=== PATIENT | male | born 1995 | race Caucasian/White ===

== ENCOUNTER 2023-02-20 17:51 | Emergency (ER) | payer MEDICAID, SELFPAY ==
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
[2023-02-20 17:56] VITALS: BP 117/88; PULSE 124; RESP 17; TEMP 36.8; O2SAT 96; BMI 25.9
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
--- NOTE | 2023-02-20 18:32 | ECG_ITS ---
[facility] Test Date: 2023-02-20 Pat Name: Nils Perry Department: Room: Gender: Male Pulmonary Physician: : 1995 Requested By: Bean Leonard Order Number: [id number] Rita MD: Mathew Crespo M.D. Measurements Intervals [place] Rate: 104 P: 53 NE: 148 QRS: 62 QRSD: 93 T: 49 QT: 334 QTc: 441 Interpretive Statements SINUS TACHYCARDIA LEFT ATRIAL ENLARGEMENT [-0.15mV P-WAVE IN V1/V2] No previous ECG available for comparison Electronically Signed On 02-21-2023 10:20:08 CDT by Mathew Crespo M.D. [id number]
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
[2023-02-20 19:26] LABS: Basophils # 0.1 10^3/uL (0.0-0.1); Basophils % 0.6 %; Eosinophils # 0.3 10^3/uL (0.0-0.8); Eosinophils % 3.3 %; Hematocrit 45.9 % (42.0-52.0); Hemoglobin 15.4 g/dL (11.7-16.6); Lymphocytes # 2.8 10^3/uL (0.8-4.8); Lymphocytes % 27.7 %; Mean Corpuscular HGB Conc 33.6 g/dL (30.0-36.0); Mean Corpuscular Hemoglobin 29.8 pg (28.0-34.0); Mean Platelet Volume 8.8 fL (7.4-10.4); Monocytes # 0.8 10^3/uL (0.2-0.9); Monocytes % 7.5 %; Neutrophils # 6.07 10^3/uL (1.8-7.7); Neutrophils % 60.4 %; Nucleated Red Blood Cells % 0 %; Platelet Count 284 10^3/cmm (130-400); Red Blood Count 5.16 10^6/uL (4.1-5.3)
[2023-02-20 19:49] LABS: Alanine Aminotransferase 29 U/L (0-41); Albumin Level 4.5 g/dL (3.5-5.2); Alcohol Level 166 mg/dL (0-10); Alkaline Phosphatase 74 U/L (40-130); Anion Gap 17.8 (5-19); Aspartate Amino Transferase 22 U/L (0-40); Blood Urea Nitrogen 11 mg/dL (6-20); Calcium 8.1 mg/dL (8.5-10.5); Carbon Dioxide 22 mmol/L (22-29); Chloride 109 mmol/L (98-107); Globulin 2.2 g/dL (1.3-4.6); Glomerular Filtration Rate 102.8 mL/min (90-130); Glucose 93 mg/dL (65-115); Osmolality Calculated 299 mOsm/kg (285-295); Potassium 3.8 mmol/L (3.5-5.1); Sodium 145 mmol/L (136-145); Total Bilirubin 0.3 mg/dL (0.15-1.2); Total Protein 6.7 g/dL (6.6-8.7)
[2023-02-20 19:52] LABS: Acetaminophen < 5.0 ug/mL (10-30); Salicylate < 0.3 mg/dL (3-10)
[2023-02-20 20:06] LABS: Urine Appearance Clear (CLEAR); Urine Color Yellow (Yellow); pH Urine 7 (5-7)
[2023-02-20 20:07] LABS: Add Urine Microscopic? YES; Bilirubin Urine Neg (Negative); Blood Urine Neg (Negative); Glucose Urine UA Norm (Normal); Ketones Urine Negative (Negative); Leukocyte Esterase Urine Negative (Negative); Nitrate Urine Negative (Negative); Protein Urine Trace (Negative); Urobilinogen Urine Norm (Negative)
[2023-02-20 20:10] LABS: Amorphous Sediment Urine 1+ /hpf; Bacteria Urine 1+ /hpf; RBC Urine 0-4 /hpf (0-2); Squamous Epithelial Cell Urine 0-4 /hpf (0-5); WBC Urine 0-4 /hpf (0-5)
[2023-02-20 20:15] LABS: Amphetamines Screen Urine Negative (Negative); Barbiturates Screen Urine Negative (Negative); Benzodiazepines Screen Urine Positive (Negative); Cocaine Screen Urine Negative (Negative); Opiate Screen Urine Negative (Negative); PCP Screen Urine Negative (Negative); THC Screen Urine Negative (Negative)
[2023-02-20 21:41] VITALS: PULSE 80; RESP 18; O2SAT 95
--- NOTE | 2023-03-04 10:28 | DCPLANNER ---
TCM called patient due to no primary care physician - no answer at this time.
== END 2023-02-20 21:35 | disposition home or self-care (01) ==
PROVIDERS: Emergency Provider Emergency Medicine
DX: S00.83XA Contusion of other part of head, initial encounter (principal); F10.129 Alcohol abuse with intoxication, unspecified; Y90.6 Blood alcohol level of 120-199 mg/100 ml; F17.210 Nicotine dependence, cigarettes, uncomplicated; Y04.8XXA Assault by other bodily force, initial encounter
CPT/HCPCS: 36415; 70450; 71045; 80053; 80306; 80307; 81001; 85025; 93005; 99285

== ENCOUNTER → 2024-01-16 11:44 | Outpatient (BNVA) | payer MEDICAID, SELFPAY | PROVIDERS: Visit Provider Emergency Medicine | DX: J02.9 Acute pharyngitis, unspecified (principal) | CPT/HCPCS: 87071; 87880 ==

== ENCOUNTER 2025-04-03 18:06 | Emergency (ER) | payer OTHER, SELFPAY ==
--- NOTE | 2025-04-03 18:22 | ECG_ITS ---
[facility] Test Date: 2025-04-03 Pat Name: Nils Perry Department: Room: Gender: Male Licensed Embalmer: : 1995 Requested By: Praveena Rincon Order Number: [id number] Salinas MD: Kym Rivera M.D. Measurements Intervals [place] Rate: 71 P: 55 [place]: 147 QRS: 59 QRSD: 96 T: 59 QT: 378 QTc: 413 Interpretive Statements SINUS RHYTHM Compared to ECG 02/20/2023 18:59:31 Sinus tachycardia no longer present Atrial abnormality no longer present ST changes inferior leads, may suggest early repolarization Electronically Signed On 04-05-2025 06:11:08 CDT by Kym Rivera M.D. [email or web address] [id number]
[2025-04-03 18:23] VITALS: BP 137/97; PULSE 85; RESP 16; TEMP 36.6; O2SAT 100
[2025-04-03 19:48] LABS: Basophils # 0.1 10^3/uL (0.0-0.1); Basophils % 0.9 %; Eosinophils # 0.5 10^3/uL (0.0-0.8); Hematocrit 45.3 % (37-53); Lymphocytes % 31.7 %; Mean Corpuscular HGB Conc 35.1 g/dL (30-55); Mean Corpuscular Hemoglobin 30.5 pg (27-33); Mean Corpuscular Volume 86.9 fl (82-101); Mean Platelet Volume 9.1 fL (7.4-10.4); Monocytes # 0.5 10^3/uL (0.2-0.9); Monocytes % 8.2 %; Neutrophils # 3.23 10^3/uL (1.8-7.7); Neutrophils % 50.9 %; Nucleated Red Blood Cells % 0 %; Platelet Count 286 10^3/cmm (157-399); Red Blood Count 5.21 10^6/uL (3.85-5.65); White Blood Count 6.35 10^3/uL (3.29-11.43)
[2025-04-03 20:05] LABS: Alanine Aminotransferase 16 U/L (0-41); Albumin Level 4.4 g/dL (3.5-5.2); Alkaline Phosphatase 88 U/L (40-130); Anion Gap 14.4 (5-19); Aspartate Amino Transferase 15 U/L (0-40); Blood Urea Nitrogen 14 mg/dL (6-20); Calcium 8.8 mg/dL (8.5-10.5); Carbon Dioxide 26 mmol/L (22-29); Chloride 102 mmol/L (98-107); Creatinine Clr Calc Pharmacy 138.2406; Globulin 2.8 g/dL (1.3-4.6); Glucose 101 mg/dL (65-115); Osmolality Calculated 287 mOsm/kg (285-295); Potassium 4.4 mmol/L (3.5-5.1); Sodium 138 mmol/L (136-145); Total Bilirubin 0.8 mg/dL (0.15-1.2); Total Protein 7.2 g/dL (6.6-8.7)
[2025-04-03 21:06] VITALS: BP 145/100; PULSE 97; RESP 16; O2SAT 99
--- NOTE | 2025-04-03 21:11 | CTR_ITS ---
PROCEDURE INFORMATION: Exam: CT Head Without Contrast Exam date and time: 04/03/2025 9:24 PM Age: 29 years old Clinical indication: Weakness, extremity; Bilateral; Additional info: Syncope TECHNIQUE: Imaging protocol: Computed tomography of the head without contrast. Radiation optimization: All CT scans at this facility use at least one of these dose optimization techniques: automated exposure control; mA and/or kV adjustment per patient size (includes targeted exams where dose is matched to clinical indication); or iterative reconstruction. COMPARISON: CT head wo con* [id number] 03/22/2023 18:46 RADIATION DOSE METRICS: Total DLP (mGy-cm): 1054.1 FINDINGS: Brain: Parenchymal structures of the brain demonstrate relatively normal anatomy and attenuation. The midline is intact.Beam hardening artifact obscures resolution through the posterior fossa structures. No hemorrhage. Unremarkable white matter. No mass effect. Cerebral ventricles: No ventriculomegaly. Paranasal sinuses: Partial opacification of the right maxillary sinus without discrete air-fluid level. Also observed are areas of mucosal thickening and partial opacification of the ethmoid sinus air cells and left frontal sinus. Mastoid air cells: Visualized mastoid air cells are well aerated. Bones: Unremarkable. No acute fracture. Soft tissues: Unremarkable. CT/CT head wo con* [id number] IMPRESSION: 1. No acute intracranial head CT findings identified. 2. Nonspecific mucosal thickening of the sinuses, as described
--- NOTE | 2025-04-03 21:12 | ED_ITS ---
HPI - Syncope 2 General: Chief Complaint: Syncope Stated Complaint: Leg Weakness Time Seen by Provider: 04/03/25 21:08 Source: patient Mode of arrival: ambulatory Limitations: no limitations History of Present Illness: 29-year-old male states has been having high blood pressure for last few months states he has not been able to get into a PCP and is not on any meds he states that yesterday while at work his blood pressure spike he had had some lightheadedness mild headache and did have a syncopal event. He states he feels back to his baseline currently did not hit his head denies any chest pain denies any vomiting or diarrhea Associated symptoms: Reports headache(s); Deny abdominal pain, chest pain, fever(s) or nausea Related Data Previous Rx's ?Medication ?Instructions ?Recorded ibuprofen 600 mg tablet 600 mg PO Q8H PRN pain #30 t abs 01/16/24 bupropion HCl 150 mg 24 hr tablet, 150 mg PO QAM #30 t abs 04/26/24 extended release (Wellbutrin XL) buspirone 10 mg tablet 20 mg (2 x 10 mg) PO TID #18 0 tabs 04/26/24 fluoxetine 40 mg capsule 80 mg (2 x 40 mg) PO DAILY # 60 caps 04/26/24 hydroxyzine HCl 50 mg tablet 50 mg PO QID PRN anxiety #120 tabs 04/26/24 naltrexone 50 mg tablet 50 mg PO BID #60 tabs propranolol 20 mg tablet 20 mg PO BID PRN anxiety #60 tabs 04/26/24 ondansetron 8 mg disintegrating 8 mg PO Q8H PRN nausea and 01/22/25 tablet vomiting 5 days #15 tabs amlodipine 5 mg tablet (Norvasc) 5 mg PO DAILY #30 tab s 04/03/25 Allergies Allergy/AdvReac Type Severity Reaction Status Date / Time sulfamethoxazole (From Allergy Intermediate liquid Verified 01/22/25 09:56 Bactrim) only.rash. trimethoprim (From Bactrim) Allergy Intermediate liquid Verified 01/22/25 09:56 only.rash. Review of Systems 2 Const: Denies: fever(s), chills, body aches or change in appetite Eyes: Reports: blurry vision; Denies: eye discomfort ENMT: Denies: throat pain or dental pain Card: Reports: syncope; Denies: chest pain Resp: Denies: dyspnea GI: Denies: abdominal pain, nausea, vomiting or diarrhea Musc: Denies: neck pain or back pain Skin/Breast: Denies: rash Neuro: Reports: headache(s) PFSH ED 2 PFSH: Medical History Strep pharyngitis Social History Smoking and tobacco/nicotine status: never used tobacco/nicotine Alcohol intake: current Alcohol intake frequency: few times a month Physical Exam 2 Const: COMMON NORMALS: no acute distress, patient oriented x3 and healthy appearing HENMT: COMMON NORMALS: normocephalic and atraumatic HEAD & SCALP: n ormocephalic and atraumatic Eye: COMMON NORMALS: Equal, round and reactive pupils present and EOMs intact bilaterally PUPIL: Yes Equal, round and reactive pupils present Neck/C-Spine: COMMON NORMALS: full ROM and supple Chest: COMMONS NORMALS: normal inspection of the chest Resp: COMMON NORMALS: normal respiratory effort Cardio: COMMON NORMALS: regular rate, regular rhythm and No murmurs present (Cardio) RATE: regular rate RHYTHM: regular rhythm GI: COMMON NORMALS: Normal to inspection, nondistended, normoactive bowel sounds present, Soft to palpation, non-tender and no masses PALPATION: Yes Soft to palpation Extremity: COMMON NORMALS: normal to inspection and full ROM Neuro: COMMON NORMALS: patient oriented x3, moves all extremities and no focal motor deficits Psych: COMMON NORMALS: mental status grossly normal, Normal thought process present and cooperative THOUGHT PROCESS: Normal thought process present Skin: COMMON NORMALS: no rashes or lesions noted and no wounds GENERAL SKIN EXAM: no rashes or lesions noted Course 2 Vital Signs: Vital signs: Vital Signs Temperature 97.9 F 04/03/25 18:23 Pulse Rate 66 04/03/25 22:05 Respiratory Rate 16 04/03/25 22:05 Blood Pressure 132/95 04/03/25 22:05 Pulse Oximetry 95 04/03/25 22:05 Oxygen Delivery Me thod Room Air 04/03/25 22:05 MDM - Syncope Medical Decision Making Patient presents after syncopal event is hypertensive as well he has been well- appearing here imaging blood works normal we will start him on Norvasc he has follow-up with PCP return if worsening he understands agrees to plan. Medical Records I reviewed the patient's medical records. Lab Data I reviewed the patient's lab results. 04/03/25 19:31 04/03/25 19:[address] 04/03/25 21:11 IMPRESSION: 1. No acute intracranial head CT findings identified. 2. Nonspecific mucosal thickening of the sinuses, as described Laboratory Results WBC 6.35 10^3/uL (3.29-11.43) 04/03/25 19:31 RBC 5.21 10^6/uL (3.85-5.65) 04/03/25 19:31 Hgb 15.90 g/dL (11.27-16.99) 04/03/25 19:31 Hct 45.3 % (37-53) 04/03/25 19:31 MCV 86.9 fl (82-101) 04/03/25 19:31 MCH 30.5 pg (27-33) 04/03/25 19:31 MCHC 35.1 g/dL (30-55) 04/03/25 19:31 RDW 12.0 % (12.1-15.1) L 04/03/25 19: Plt Count 286 10^3/cmm (157-399) 04/03/25 19:31 MPV 9.1 fL (7.4-10.4) 04/03/25 19:31 Neut % (Auto) 50.9 % 04/03/25 19: Lymph % (Auto) 31.7 % 04/03/25 19:31 [place] % (Auto) 8.2 % 04/03/25 19:31 Eos % (Auto) 8.0 % 04/03/25 19:31 Baso % (Auto) 0.9 % 04/03/25 19: Neut # (Auto) 3.23 10^3/uL (1.8-7.7) 04/03/25 19:31 Lymph # (Auto) 2.0 10^3/uL (0.8-4.8) 04/03/25 19:31 [place] # (Auto) 0.5 10^3/uL (0.2-0.9) 04/03/25 19:31 Eos # (Auto) 0.5 10^3/uL (0.0-0.8) 04/03/25 19:31 Baso # (Auto) 0.1 10^3/uL (0.0-0.1) 04/03/25 19:31 Nucleated RBC % (auto) 0 % 04/03/25 19: Nucleated RBCs # 0.0 /100WBC 04/03/25 19:31 Sodium 138 mmol/L (136-145) 04/03/25 19: Potassium 4.4 mmol/L (3.5-5.1) 04/03/25 19:31 Chloride 102 mmol/L (98-107) 04/03/25 19: Carbon Dioxide 26 mmol/L (22-29) 04/03/25: Anion Gap 14.4 (5-19) 04/03/25 19: BUN 14 mg/dL (6-20) 04/03/25 19: Creatinine 0.8 mg/dL (0.7-1.2) 04/03/25 19: GFR Calculation 116.0 mL/min (90-130) 04/03/25 19: Glucose 101 mg/dL (65-115) 04/03/25 19: Calculated Osmolality 287 mOsm/kg (285-295) 04/03/25: Calcium 8.8 mg/dL (8.5-10.5) 04/03/25 19: Total Bilirubin 0.8 mg/dL (0.15-1.2) 04/03/25 19: AST 15 U/L (0-40) 04/03/25 19: ALT 16 U/L (0-41) 04/03/25 19:31 Alkaline Phosphatase 88 U/L (40-130) 04/03/25 19:31 Total Protein 7.2 g/dL (6.6-8.7) 04/03/25 19: Albumin 4.4 g/dL (3.5-5.2) 04/03/25 19: Globulin 2.8 g/dL (1.3-4.6) 04/03/25 19:31 All radiology interpretation(s) finalized by discharge EKG Data EKG 1: I personally reviewed and interpreted this EKG as follows: EKG interpretation date: 04/03/25 EKG interpretation time: 18:22 Interpretation: nsr hr [address] elevation qrs 96 qtc 401 Discharge Plan Discharge Patient Disposition: Home Clinical Impression: Syncope, Hypertension Condition: Stable Prescriptions: New amlodipine [Norvasc] 5 mg tablet 5 mg PO DAILY Qty: 30 0RF No Action ibuprofen 600 mg tablet 600 mg PO Q8H PRN (Reason: pain) Qty: 30 0RF ondansetron 8 mg tablet,disintegrating 8 mg PO Q8H PRN (Reason: nausea and vomiting) 5 Days Qty: 15 0RF bupropion HCl [Wellbutrin XL] 150 mg tablet extended release 24 hr 150 mg PO QAM Qty: 30 2RF buspirone 10 mg tablet 20 mg PO TID Qty: 180 2RF fluoxetine 40 mg capsule 80 mg PO DAILY Qty: 60 2RF hydroxyzine HCl 50 mg tablet 50 mg PO QID PRN (Reason: anxiety) Qty: 120 2RF naltrexone 50 mg tablet 50 mg PO BID Qty: 60 2RF propranolol 20 mg tablet 20 mg PO BID PRN (Reason: anxiety) Qty: 60 2RF Discharge Orders: Discharge ED (Routine); Ordered 04/03/25 Ordered By: Praveena Rincon Discharge Diet: Advance as tolerated Discharge Activity: Resume usual activity Patient Instructions: Syncope (ED), Hypertension (ED) Print Language: Urdu Coding Level of Care Code ED Trailer Technician for Hoda Sanches
[2025-04-03 22:05] VITALS: BP 132/95; PULSE 66; RESP 16; O2SAT 95
[2025-04-03] MEDS: amlodipine 10 mg Tablet PO (22:09)
[2025-04-03 22:27] VITALS: BP 140/88; PULSE 73; RESP 16; O2SAT 98
== END 2025-04-03 22:29 | disposition home or self-care (01) ==
PROVIDERS: Emergency Provider Emergency Medicine
DX: R55 Syncope and collapse (principal); I10 Essential (primary) hypertension
CPT/HCPCS: 36415; 70450; 80053; 85025; 93005; 99284; J9999